=== PATIENT | male | born 2000 | race Two or more races ===

== ENCOUNTER 2023-02-08 10:13 | Observation (INO) ==
[~2023-02-08 10:13] MED LIST: cefOXitin 2,000 MG in DEXTROSE 5 % MINI-B 50 ML IV SCH; cefOXitin SOD 2,000 MG VIAL IV SCH
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
[2023-02-08 12:06] LABS: Basophils # (auto) 0.08 K/uL (0.00-0.20); Basophils % (auto) 0.4 %; Eosinophils # (auto) 0.02 K/uL (0.00-0.50); Eosinophils % (auto) 0.1 %; Hematocrit (blood only) 46.7 % (42.0-52.0); Hemoglobin 15.6 g/dl (14.0-18.0); Immature Granulocytes % (auto) 0.5 %; Lymphocytes # (auto) 0.86 K/uL (1.20-3.40); Lymphocytes % (auto) 4.4 %; Mean Corpuscular Hgb Conc 33.4 g/dL (32.0-36.0); Mean Corpuscular Volume 83.8 fL (80.0-100.0); Mean Platelet Volume 10.9 fL (9.4-12.4); Monocytes # (auto) 1.63 K/uL (0.11-0.59); Monocytes % (auto) 8.3 %; Neutrophils # (auto) 17.04 K/uL (1.40-6.50); Neutrophils % (auto) 86.3 %; Platelet Count 240 K/uL (130-400); RDW Coefficient of Variation 13.8 % (11.5-14.5); RDW Standard Deviation 42.5 fL (36.4-46.3); Red Blood Count 5.57 M/uL (4.70-6.10); White Blood Count 19.73 K/ul (4.8-10.8)
[2023-02-08 12:17] LABS: Albumin Globulin Ratio 1.3 (0.9-2); Albumin Level 4.7 gm/dl (3.4-5.0); Bilirubin,Total 0.7 mg/dl (0.2-1.0); Calcium 9.6 mg/dl (8.6-10.3); Creatinine Clr Calc Pharmacy 139.8 ml/min; Est GFR (African American) 113.9 ml/min; Est GFR (Non-African American) 98.3 ml/min; Globulin 3.7 gm/dl (2.5-4.0); Potassium 3.9 mmol/L (3.5-5.1); Total Protein 8.4 gm/dl (6.0-8.3)
[2023-02-08] MEDS ORDERED: SODIUM CHLORIDE 0.9% 1,000 ML IV STA (12:25)
[2023-02-08] MEDS ORDERED: ONDANSETRON INJ 2 MG/ML 2 ML VIAL IV STA (12:25)
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
[2023-02-08] MEDS ORDERED: OPTIRAY 320 100ml IV ONE (13:18)
--- NOTE | 2023-02-08 13:37 | CT Scan Report ---
ABDOMEN AND PELVIS CT WITH IV CONTRAST CT DOSE: 1479.25 mGy.cm HISTORY: RLQ pain TECHNIQUE: Multiaxial CT images of the abdomen and pelvis were performed following the use of intrave nous contrast. A dose lowering technique was utilized adhering to the principles of ALARA. COMPARISON STUDY: None. FINDINGS: The lung bases are clear. No pneumoperitoneum. No pneumatosis. No acute fractures. Hepatic steatosis. The main portal vein is patent. The gallbladder, pancreas, spleen, adrenal glands, and kid neys are unremarkable. No hydronephrosis. No retroperitoneal lymphadenopathy. Normal caliber abdomina l aorta. No pelvic free fluid. Normal bladder. No evidence for a bowel obstruction. Mildly distended and fluid-filled appendix with mild periappendiceal fat stranding. This is consistent with an early a cute appendicitis. The appendix measures up to 10 mm in diameter. No periappendiceal abscess or perfo ration at this time. IMPRESSION: 1. Above findings consistent with mild acute appendicitis. Surgical consultation recommended. 2. Hepatic steatosis. ACT 112: Negative or not required by law. Electronically signed by: Jamie Gerardo M.D. 02/08/2023 1:36 PM
[2023-02-08 13:42] LABS: Appearance Urine Clear (Clear); Bacteria Urine Automated Negative (Negative); Bilirubin Urine Negative (Negative); Blood Urine Negative (Negative); Color Urine Yellow; Epithelial Cell Urine Auto 0-5 /lpf (0-5); Glucose Urine UA Negative (Negative); Ketones Urine Negative (Negative); Leukocyte Esterase Urine Trace (Negative); Nitrite Urine Negative (Negative); Protein Urine Negative (Negative); RBC Urine Automated 0-4 /hpf (0-4); Specific Gravity Urine 1.029 (1.000-1.030); Urobilinogen Urine Negative (Negative)
--- NOTE | 2023-02-08 14:25 | History & Physical Report ---
Date of Service February 08, 2023 Assessment & Plan (1) Acute appendicitis: Plan 22 year-old male with 2 day history of nausea, vomiting, and low abdominal pain with ct scan showing early acute appendicitis. Leukocytosis of 19k but afebrile and hemodynamically stable. Discussed indication for laparoscopic appendectomy, risks of procedure, expected recovery, and restrictions. Informed consent obtained. Will proceed with laparoscopic appendectomy with Dr. Hoyos at earliest convenience. Keep NPO, 2 gms cefoxitin for preop antibiotic Dr. Hoyos has seen patient and agrees with above. History of Present Illness Chief Complaint: abdominal pain , nausea, and vomiting Primary Care Provider: NO PCP hSorty is a pleasant 22 year-old [employer] student who presented to ed with complaint of lower abdominal pain, nausea, and vomiting that started last evening. Pain about 6/10 currently. Has never had this before. Denies of any fever, chills, vomiting blood, diarrhea, blood in stools, or difficulty urinating. Emergency work-up included labs which showed leukocytosis of 19k and ct scan with findings of early acute appendicitis, appendix fluid filled and dilated at 10 mm with minimal periappendiceal fluid. No prior abdominal surgeries. Allergies Allergy/AdvReac Type Severity Reaction Status Date / Time No Known Allergies Allergy Unverified 02/08/23 13:39 Home Medications Medication Instructions Recorded Confirmed Type cetirizine 10 mg tablet (Zyrtec) 10 mg PO DAILY PRN allergies 02/08/23 02/08/23 History chlorpheniramine 4 mg-DM 30 0 ml PO HS PRN .cold symptoms 02/08/23 02/08/23 History mg-acetaminophen 650 mg/30 mL oral liquid (Vicks NyQuil Cold/Flu (cpm)) docusate sodium 50 mg/5 mL oral 0 mg PO DAILY PRN Constipation 02/08/23 02/08/23 History liquid ibuprofen 200 mg tablet (Advil) 400 mg PO Q6H PRN Fever Or Pain 02/08/23 02/08/23 History Past Med/Surg History Social History Smoking Status: Never smoker Preferred Language: Swedish Feels Safe at Home: Yes Review of Systems Review of Systems: All systems reviewed & are unremarkable except as noted in HPI & below Physical Exam Constitutional: WD/WN, vitals as above + obese, cooperative and comfortable; no acute distress and not ill appearing Neck: trachea midline Respiratory: normal respiratory effort, lungs clear to auscultation Cardiovascular: RRR, no murmur, no edema Gastrointestinal (Abdomen): Inspection/Auscultation: abdomen normal to inspection; abdomen not distended Percussion/Palpation: + abdomen tender (RLQ on deep palpation) and abdomen soft; no guarding, abdomen not rigid and abdomen not firm Skin: no rashes, warm and dry Psychiatric: A+Ox3, euthymic affect Results & Data Results & Data Vital Signs (Past 12 Hours) Vital Signs Temp Pulse Pulse Resp BP BP Pulse Ox 02/08/23 12:28 77 20 127/65 97 02/08/23 12:25 97 02/08/23 10:35 37.1 C 100 H 18 127/73 97 O2 Del Method 02/08/23 12:28 Room Air 02/08/23 12:25 Room Air 02/08/23 10:35 Room Air Laboratory Results 02/08/23 02/08/23 Range/Units 13:30 11:30 WBC 19.73 H (4.8-10.8) K/ul RBC 5.57 (4.70-6.10) M/uL Hgb 15.6 (14.0-18.0) g/dl Hct 46.7 (42.0-52.0) % MCV 83.8 (80.0-100.0) fL MCH 28.0 (25.0-34.0) pg MCHC 33.4 (32.0-36.0) g/dL RDW Std Deviation 42.5 (36.4-46.3) fL RDW Coeff of Maritza 13.8 (11.5-14.5) % Plt Count 240 (130-400) K/uL MPV 10.9 (9.4-12.4) fL Immature Gran % (Auto) 0.5 % Neut % (Auto) 86.3 % Lymph % (Auto) 4.4 % [place] % (Auto) 8.3 % Eos % (Auto) 0.1 % Baso % (Auto) 0.4 % Neut # (Auto) 17.04 H (1.40-6.50) K/uL Lymph # (Auto) 0.86 L (1.20-3.40) K/uL [place] # (Auto) 1.63 H (0.11-0.59) K/uL Eos # (Auto) 0.02 (0.00-0.50) K/uL Baso # (Auto) 0.08 (0.00-0.20) K/uL Immature Gran # (Auto) 0.10 (0.01-0.20) K/uL Sodium 135 L (136-145) mmol/L Potassium 3.9 (3.5-5.1) mmol/L Chloride 101 (98-107) mmol/L Carbon Dioxide 26 (21-32) mmol/L Anion Gap 8 (3-11) BUN 13 (6-23) mg/dl Creatinine 1.08 (0.6-1.4) mg/dl Est Cr Clr Drug Dosing 139.8 ml/min Est GFR ( Amer) 113.9 ml/min Est GFR (Non-Af Amer) 98.3 ml/min BUN/Creatinine Ratio 12.0 (10-20) Glucose 118 H (70-99(Fasting)) mg/dl Calcium 9.6 (8.6-10.3) mg/dl Total Bilirubin 0.7 (0.2-1.0) mg/dl AST 22 (13-39) U/L ALT 30 (7-52) U/L Alkaline Phosphatase 81 (34-104) U/L Total Protein 8.4 H (6.0-8.3) gm/dl Albumin 4.7 (3.4-5.0) gm/dl Globulin 3.7 (2.5-4.0) gm/dl Albumin/Globulin Ratio 1.3 (0.9-2) Lipase 6 L (11-82) U/L Urine Color Yellow Urine Appearance Clear (Clear) Urine pH 6.0 (4.5-7.5) Ur Specific [place] 1.029 (1.000-1.030) Urine Protein Negative (Negative) Urine Glucose (UA) Negative (Negative) Urine Ketones Negative (Negative) Urine Blood Negative (Negative) Urine Nitrite Negative (Negative) Urine Bilirubin Negative (Negative) Urine Urobilinogen Negative (Negative) Ur Leukocyte Esterase Trace H (Negative) Urine WBC (Auto) 1-5 (0-5) /hpf Urine RBC (Auto) 0-4 (0-4) /hpf U Hyaline Cast (Auto) 1-5 (0-5) /lpf U Epithel Cells (Auto) 0-5 (0-5) /lpf Urine Bacteria (Auto) Negative (Negative) Diagnostic Findings ABDOMEN AND PELVIS CT WITH IV CONTRAST CT DOSE: 1479.25 mGy.cm HISTORY: RLQ pain TECHNIQUE: Multiaxial CT images of the abdomen and pelvis were performed f ollowing the use of intravenous contrast. A dose lowering technique was utilized adhering to the principles of ALARA. COMPARISON STUDY: None. FINDINGS: The lung bases are clear. No pneumoperitoneum. No pneumatosis. No acute fractures. Hepatic steatosis. The main portal vein is patent. The gallbladder, pancreas, spleen, adrenal glands, and kidneys are unremarkable. No hydronephrosis. No retroperitoneal lymphadenopathy. Normal caliber abdominal aorta. No pelvic free fluid. Normal bladder. No evidence for a bowel obstruction. Mildly distended and fluid-filled appendix with mild periappendiceal fat stranding. This is consistent with an early acute appendicitis. The appendix measures up to 10 mm in diameter. No periappendiceal abscess or perforation at this time. IMPRESSION: 1. Above findings consistent with mild acute appendicitis. Surgical consultation recommended. 2. Hepatic steatosis. Code Status & VTE Plan VTE Prophylaxis Plan VTE Prophylaxis will be ordered: Yes
--- NOTE | 2023-02-08 14:59 | Anesthesiology Consultation ---
Date of Service February 08, 2023 Assessment & Plan Chart Review Chart Review: Acceptable Risk for Surgery and Patient NOT seen in Pre Admission Testing Consults Requested none ASA [id number] Proposed Anesthesia Anesthesia Type: General History Surgery Operation Date: 02/08/23 08:55 Proposed Procedures p Laparoscopic Appendectomy - Ambrocio Hoyos MD Height/Weight Height: 5 ft 8 in Weight: 123.8 kg Allergies Allergy/AdvReac Type Severity Reaction Status Date / Time No Known Allergies Allergy Unverified 02/08/23 13:39 Medications Home Medications Medication Instructions Recorded Confirmed Last Taken cetirizine 10 mg tablet (Zyrtec) 10 mg PO DAILY PRN allergies 02/08/23 02/08/23 Unknown chlorpheniramine 4 mg-DM 30 0 ml PO HS PRN .cold symptoms 02/08/23 02/08/23 Unknown mg-acetaminophen 650 mg/30 mL oral liquid (Vicks NyQuil Cold/Flu (cpm)) docusate sodium 50 mg/5 mL oral 0 mg PO DAILY PRN Constipation 02/08/23 02/08/23 Unknown liquid ibuprofen 200 mg tablet (Advil) 400 mg PO Q6H PRN Fever Or Pain 02/08/23 02/08/23 Unknown Past Medical History morbid obesity Exercise / Class Metabolic Activity II 4-5 Yardwork/Stairs/Walk up hill Past Anesthesia History No Hx of Anesthesia Complications and No Family Hx of Anesthesia Complications History of PONV No Hx of PONV and No Hx of Motion Sickness Social History Smoking Status: Never smoker Physical Exam Vital Signs Last Vital Signs Temp 37.1 C 02/08/23 10:35 Pulse 93 H 02/08/23 14:28 Resp 20 02/08/23 14:28 BP 109/90 02/08/23 14:28 Pulse Ox 93 02/08/23 14:28 O2 Del Method Room Air 02/08/23 14:28 Testing Laboratory Results 02/08/23 11:30 02/08/23 11:30 Urine Color Yellow 02/08/23 13:30 Urine Appearance Clear (Clear) 02/08/23 13:30 Urine pH 6.0 (4.5-7.5) 02/08/23 13:30 Ur Specific [place] 1.029 (1.000-1.030) 02/08/23 13:30 Urine Protein Negative (Negative) 02/08/23 13:30 Urine Glucose (UA) Negative (Negative) 02/08/23 13:30 Urine Ketones Negative (Negative) 02/08/23 13:30 Urine Nitrite Negative (Negative) 02/08/23 13:30 Ur Leukocyte Esterase Trace (Negative) H 02/08/23 13:30 Urine WBC (Auto) 1-5 /hpf (0-5) 02/08/23 13:30 Urine RBC (Auto) 0-4 /hpf (0-4) 02/08/23 13:30 U Hyaline Cast (Auto) 1-5 /lpf (0-5) 02/08/23 13:30 U Epithel Cells (Auto) 0-5 /lpf (0-5) 02/08/23 13:30 Urine Bacteria (Auto) Negative (Negative) 02/08/23 13:30
[2023-02-08] MEDS ORDERED: BUPIVACAINE/EPINEPHRINE 0.5% MPF 1:200,000 30 ML VIAL ONE (15:15)
[2023-02-08] MEDS ORDERED: fentaNYL citrate PF 100 MCG/2 ML VIAL ONE ×2 (15:22→15:44)
[2023-02-08] MEDS ORDERED: MIDAZOLAM HCL 1 MG/ML 2ML VIAL ONE (15:22)
[2023-02-08] MEDS ORDERED: ePHEDrine sulfate 50 MG/ML AMP IV PRN (15:26)
[2023-02-08] MEDS ORDERED: FLUMAZENIL 0.1 MG/1 ML 10 ML VIAL IV PRN (15:26)
[2023-02-08] MEDS ORDERED: HYDROmorphone INJ 1 MG/ML SYRINGE IV PRN (15:26)
[2023-02-08] MEDS ORDERED: fentaNYL citrate PF 100 MCG/2 ML VIAL IV PRN (15:26)
[2023-02-08] MEDS ORDERED: PROMETHAZINE HCL 12.5 MG in SODIUM CHLORIDE 0.9% 50 ML IV PRN (15:26)
[2023-02-08] MEDS ORDERED: ATROPINE SULFATE 0.1 MG/ML 10ML SYR IV PRN (15:26)
[2023-02-08] MEDS ORDERED: ONDANSETRON INJ 2 MG/ML 2 ML VIAL IV PRN ×2 (15:26→19:41)
[2023-02-08] MEDS ORDERED: NALOXONE HCL 0.4 MG/1 ML VIAL/CARP IV PRN (15:26)
[2023-02-08] MEDS ORDERED: DEXAMETHASONE SOD INJ 4 MG/ML VIAL ONE (16:06)
[2023-02-08] MEDS ORDERED: KETOROLAC 30 MG/ML VIAL ONE (16:06)
[2023-02-08] MEDS ORDERED: PROPOFOL IV EMULSION 10 MG/ML 20 ML VIAL IV ONE (16:06)
[2023-02-08] MEDS ORDERED: ONDANSETRON INJ 2 MG/ML 2 ML VIAL ONE (16:06)
[2023-02-08] MEDS ORDERED: ROCURONIUM BROMIDE 10 MG/ML 5 ML VIAL IV ONE (16:06)
[2023-02-08] MEDS ORDERED: SUGAMMADEX SODIUM 200 MG/2 ML VIAL IV ONE (16:07)
--- NOTE | 2023-02-08 16:29 | Post Operative Brief Note ---
Immediate Post Op Note v1 Date of Surgery February 08, 2023 Pre & Post Diagnosis Operation Date: 02/08/23 08:55 Pre-Op Diagnosis: Acute Appendicitis Post-Op Diagnosis: Acute Appendicitis I identified the patient and participated in the time-out.: Yes Procedure Operation Date: 02/08/23 08:55 Actual Procedures p Laparoscopic Appendectomy(Not Applicable) - Ambrocio Hoyos MD Surgeon Ambrocio Hoyos MD Service Establishment Attendant Susan Vasquez PA-C Estimated Blood Loss 20 Findings Consistent with Post-Op Diagnosis
--- NOTE | 2023-02-08 16:34 | Operative Report ---
Post Operative Report Pre & Post Diagnosis Operation Date: 02/08/23 08:55 Pre-Op Diagnosis: Acute Appendicitis Post-Op Diagnosis: Acute Appendicitis I identified the patient and participated in the time-out.: Yes Procedure Operation Date: 02/08/23 08:55 Actual Procedures p Laparoscopic Appendectomy(Not Applicable) - Ambrocio Hoyos MD Surgeon Ambrocio Hoyos MD Regional Business Manager Susan Vasquez PA-C Estimated Blood Loss 20 Findings Consistent with Post-Op Diagnosis Acutely inflamed dependent Specimens Appendix to pathology Drains None Anesthesia Type General Complications None Indications This is a 22-year-old male who came in the emergency department with complaints of acute abdominal pain. CT scan was done which showed acute appendicitis. He had an elevated white count of 19,000. Talk to him in detail and recommended laparoscopic appendectomy. We went over the risks of open procedure, postop abscess requiring drainage, wound infection, and bleeding. Description of Procedure The patient was taken to the OR and underwent excellent general anesthesia. His abdomen was prepped and draped in normal sterile fashion. Sterile transverse supraumbilical incision was made, towel clamps were used to create tension on the abdominal wall. A Varees needle was inserted into his peritoneal cavity. Good pneumoperitoneum was achieved to about 15 mmHg pressure. Once this was done visualized 5mm port was placed in the supraumbilical position. A 12mm left lower quadrant port , a 5mm suprapubic port , and a 5mm right upper quadrant port were placed in normal fashion. Patient was then placed in head down and rolled to the left. Good diagnostic lap was performed. He had obvious acute appendicitis. The cecum was grasped with an atraumatic grasper. A grasper was then placed was then used to grasp the tip of the appendix. The mesoappendix was splayed open and a harmonic scalpel was used to take down the mesoappendix. This was taken down to the base of the appendix. Once this was identified an Endo LAMONTE stapler was used to transect the appendix at its base. A Endobag was then inserted through the left lower quadrant port, the appendix was placed and then brought out through the left lower quadrant port. Appendix sent for pathologic valuation. Pneumoperitoneum and the port reestablished. A liter of saline was then used to irrigate the right lower quadrant. There was no active bleeding no other abnormalities were noted in the abdomen. Patient was then placed back into supine position. The ports were removed and the abdomen was decompressed. The 12 port fascia was then closed using a 0 Vicryl. The skin was then anesthetized with 0.5% Marcaine with epinephrine local. Interrupted Vicryl is used to close the skin. Steri-Strips and benzoin were used to reinforce the incisions. Sterile dressings were applied. Patient tolerated procedure without complication was sent to the postop recovery period of observation. He will be sent to the floor for the rest of his care. I attest to the content of the Intraoperative Record and any orders documented therein. Any exceptions are noted below.
--- NOTE | 2023-02-08 17:08 | Anesthesiology Progress Note ---
Date of Service February 08, 2023 Anesthesia Post Procedure Vital Signs Vital Signs: Temp Pulse Pulse Pulse Resp BP BP 02/08/23 16:50 92 H 13 113/72 02/08/23 16:41 36.5 C 95 H 22 02/08/23 15:04 37.2 C 88 20 02/08/23 14:28 93 H 20 02/08/23 12:28 77 20 02/08/23 12:25 02/08/23 10:35 37.1 C 100 H 18 127/73 BP Pulse Ox O2 Del Method O2 Flow Rate 02/08/23 16:50 100 Oxymask 3 02/08/23 16:41 152/88 H 99 Oxymask 6 02/08/23 15:04 123/87 99 Room Air 02/08/23 14:28 109/90 93 Room Air 02/08/23 12:28 127/65 97 Room Air 02/08/23 12:25 97 Room Air 02/08/23 10:35 97 Room Air Pain Intensity Abdomen: Pain Intensity: 2 Transfer of Care Handoff Completed per policy Notes Mental Status: alert / awake / arousable Patient Amnestic to Procedure: Yes Nausea / Vomiting: adequately controlled Pain: adequately controlled Airway Patency, RR, SpO2: stable & adequate BP & HR: stable & adequate Hydration State: stable & adequate Anesthetic Complications: no major complications apparent
[2023-02-08] MEDS ORDERED: oxyCODONE/ACETAMINOPHEN 5mg/325mg TAB PO PRN (19:41)
[2023-02-08] MEDS ORDERED: MoRPHine SULFATE 2 MG/ML CARP IV PRN (19:41)
[2023-02-08] MEDS ORDERED: MoRPHine SULFATE 4 MG/ML 1 ML CARP\\VIAL IV PRN (19:41)
[2023-02-08] MEDS: cefOXitin 2,000 MG in DEXTROSE 5 % MINI-B 50 ML IV SCH (21:33)
[2023-02-08] MEDS: oxyCODONE/ACETAMINOPHEN 5mg/325mg TAB PO PRN (23:04)
[2023-02-09] MEDS ORDERED: INFLUENZA VIRUS QUADRIVALENT VACCINE (IIV4) 0.5 ML SYR IM ONE (00:11)
[2023-02-09] MEDS: LACTATED RINGER'S 1,000 ML IV SCH ×2 (00:29→09:42)
[2023-02-09] MEDS: cefOXitin 2,000 MG in DEXTROSE 5 % MINI-B 50 ML IV SCH ×2 (03:52→09:42)
[2023-02-09] MEDS ORDERED: cefOXitin SOD 2,000 MG VIAL IV SCH (06:00)
[2023-02-09] MEDS ORDERED: COUGH DROP (SUGAR FREE) LOZ 24 LOZ/1 BOX BUCCAL ONE (07:18)
[2023-02-09] MEDS: oxyCODONE/ACETAMINOPHEN 5mg/325mg TAB PO PRN ×2 (07:20→12:28)
--- NOTE | 2023-02-09 14:41 | Discharge Summary ---
Date of Service February 09, 2023 Admission HPI Per Admitting Provider Shorty is a pleasant 22 year-old [employer] student who presented to ed with complaint of lower abdominal pain, nausea, and vomiting that started last evening. Pain about 6/10 currently. Has never had this before. Denies of any fever, chills, vomiting blood, diarrhea, blood in stools, or difficulty urinating. Emergency work-up included labs which showed leukocytosis of 19k and ct scan with findings of early acute appendicitis, appendix fluid filled and dilated at 10 mm with minimal periappendiceal fluid. No prior abdominal surgeries. Principal Diagnosis acute appendicitis Discharge Exam Constitutional WD/WN, vitals as above + obese, cooperative and comfortable; no acute distress and not ill appearing Neck normal visual inspection and trachea midline Respiratory normal respiratory effort; no respiratory distress and no labored breathing Skin no rashes, warm and dry Psychiatric A+Ox3, euthymic affect Discharge Data Allergies Allergy/AdvReac Type Severity Reaction Status Date / Time No Known Allergies Allergy Unverified 02/08/23 13:39 Consultations 02/08/23 14:10 Consult General Surgery Stat Procedures Performed Operation Date: 02/08/23 08:55 Actual Procedures p Laparoscopic Appendectomy(Not Applicable) - Ambrocio Hoyos MD Ordered Studies 02/08/23 12:26 CT abd pelvis IV con only Stat Hospital Course (1) Acute appendicitis: Plan [facility] Patient found to have acute appendicitis without perforation or rupture. Patient tolerated procedure without difficulty and was transferred to recovery then to medical/surgical floor for postop care. Diet advanced as tolerated, activity as tolerated, PO Percocet as needed for pain. POD # 1 patient doing well, avss, pain controlled, tolerating diet, and ambulating hallway. Patient was discharged home on POD # 1 in stable condition. Total Time Total Time Spent Total Time Spent (In Minutes): 20 Total Time Includes: Examination of the Patient, Discharge Planning and Medication Reconciliation Discharge Plan Discharge Items Patient Disposition: Home - Self-Care Reason For Visit: APPENDICITIS Discharge Diagnosis: Acute appendicitis Activity: Per Instructions section Non-emergency contact: Surgeon Call non-emergency contact if: you have any medication questions, your pain is not controlled, your pain is worsening, you have a fever, your temperature is above 101, your wound has increased redness, your wound has increased drainage and your wound pain has increased Follow-up/Referrals: Ambrocio Hoyos MD [Physician] - PCP,NO [Primary Care Provider] - Diet: Regular Addtl Attending Provider Instructions: Post-Surgical ~Discharge Instructions Activity Recommendations: - lifting limitation: (20 pounds for 4 weeks), - exercise/sex/sports limit: (nonstrenuous for 2 weeks), - driving or machine use limit: (none for 1 week or until pain free and no longer taking narcotic pain medication), - Shower/bathe limit: (may shower beginning tonight) Diet: - Resume previous diet SPECIAL CARE INSTRUCTIONS: - May shower tonight. Remove outer dressings and let water run over area and pat dry. - Leave steri strips on for one week and then remove. - Call the surgeon's office with any questions or concerns - - (ex. temperature higher than 101 degrees F, excessive bleeding or pain). MEDICATIONS: - Resume previous medications unless instructed otherwise by your surgeon. - May alternate extra strength Tylenol and Ibuprofen as needed for mild to moderate pain -650 mg Tylenol every 6 hours as needed - Ibuprofen 600 mg every 6 hours as needed (take with food) - Percocet 1 every 6 hours, as needed for moderate to severe pain - Recommend daily stool softener (Colace) while taking narcotic pain medication to prevent constipation or straining. Drink plenty of water daily. FOLLOW UP VISIT: - If not already scheduled, please call the office to schedule a two week follow-up appointment. Office number Pending Studies at Discharge: Yes (appendix pathology, will be reviewed at postop visit) Stand[facility]Alone [facility] Medications and DC Order Prescriptions: New oxycodone-acetaminophen 5-325 mg tablet 1 tab PO Q6H PRN (Reason: pain) Qty: 10 0RF Continued cetirizine [Zyrtec] 10 mg Tablet 10 mg PO DAILY PRN (Reason: allergies) ibuprofen [Advil] 200 mg Tablet 400 mg PO Q6H PRN (Reason: Fever Or Pain) Vicks NyQuil Cold/Flu (cpm) 4-30-650 mg/30 mL Liquid 0 ml PO HS PRN (Reason: .cold symptoms) docusate sodium 50 mg/5 mL Liquid 0 mg PO DAILY PRN (Reason: Constipation) Discharge Orders: Discharge Order (Routine); Ordered 02/09/23 Ordered By: Susan Vasquez Admission Data Admit Date/Time: 02/08/23 16:38 Attending Provider: Ambrocio Hoyos Admit Provider: Ambrocio Hoyos Primary Care Provider: PCP,NO Other Providers: Ambrocio Hoyos
== END 2023-02-09 15:55 | disposition home or self-care (01) ==
LOC: ED 10:13 → OR 15:02 → 3N 15:02 → OR 15:04